=== PATIENT | male | born 1980 ===

== ENCOUNTER 2019-05-12 06:00 | Day surgery (SDC) | payer OTHER ==
[2019-05-12] MEDS ORDERED: DUI500 PO (10:35)
[2019-05-12] MEDS ORDERED: TRAM1TAB98 PO (10:35)
== END 2019-05-12 17:22 | disposition home or self-care (01) ==
LOC: CIR.AMB 06:00 → ADM 05-13 08:15
DX: M23.321 Other meniscus derangements, posterior horn of medial meniscus, right knee (principal); M94.261 Chondromalacia, right knee; M65.861 Other synovitis and tenosynovitis, right lower leg